=== PATIENT | male | born 1965 | race Caucasian/White ===

== ENCOUNTER 2020-07-06 18:37 | Emergency (ER) | payer OTHER, SELFPAY ==
--- NOTE | ~2020-07-06 | XR_ITS ---
EXAMINATION: XR hip LT min 2V DATE: 07/06/2020 19:18 INDICATION: Left hip pain. TECHNIQUE: 3 views of left hip were obtained. COMPARISON: None. FINDINGS: Bone alignment is normal. There is severe left hip osteoarthritis. There is a nondisplaced subchondral fracture of left femoral head. IMPRESSION: 1. Severe left hip osteoarthritis with subchondral fracture of left femoral head. Reviewed, dictated and finalized at location A. TRIPOLER IMPRESSION: 1. Severe left hip osteoarthritis with subchondral fracture of left femoral hea juwan
[2020-07-06 18:49] VITALS: BP 185/73; PULSE 97; RESP 16; TEMP 36.7; O2SAT 99
--- NOTE | 2020-07-06 18:58 | ED.GENADULT ---
HPI - General Adult General Chief complaint: Extremity Injury, Lower Stated complaint: groin area pain Time Seen by Provider: 07/06/20 18:58 Source: patient and RN notes reviewed Mode of arrival: ambulatory Limitations: no limitations History of Present Illness HPI narrative: 55-year-old male presents with concern for left hip pain. Reports he has been seeing a chiropractor for left hip pain, the chiropractor told him he would need a hip replacement. He has not seen an orthopedic doctor for this problem. 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 Reports today his was helping him put on his sock when he felt a pop, and subsequent pain. Reports he has been using a cane since then, has taken 2 ibuprofen. He denies any numbness, weakness. Reports decreased range of motion MD complaint: Hip pain Related Data Allergies Allergy/AdvReac Type Severity Reaction Status Date / Time No Known Allergies Allergy Verified 07/06/20 19:04 Review of Systems Review of Systems: Narrative: CONSTITUTIONAL: Denies malaise, chills, sweats, or fever. CARDIOVASCULAR: Denies chest pain, palpitations, or edema. RESPIRATORY: Denies cough or dyspnea. SKIN: Denies redness, bruising MUSCULOSKELETAL: Reports right hip pain, decreased range of motion NEUROLOGIC: Denies numbness, weakness All systems reviewed & are unremarkable except as noted in HPI and below PMFSH Comments At time of signature, agree with nursing past medical, surgical, social and family history. There is no relevant family history pertinent to the presenting complaint Exam Narrative: Exam Narrative: GENERAL: Well-appearing, well-nourished, and in no acute distress. HEAD: Normocephalic EYES: PERRLA, conjunctivae clear ENT: Mucous membranes moist. NECK: Supple. CHEST: No respiratory distress. Speaks in full sentences. HEART: Regular rate and rhythm. Normal peripheral pulses. EXTREMITIES: Right hip has decreased normal range of motion, no edema, normal strength and sensation. SKIN: Warm, dry, no rash. NEURO: Alert and oriented x3. PSYCH: Normal mood and affect Course Course Emergency Course: Patient is aware of diagnosis, understands and agrees to treatment plan. Anticipatory guidance given. Patient agrees to follow-up as directed and is aware of reasons to seek care at the emergency department. Portions of this record may have been created with voice recognition software Vital Signs Vital signs: Vital Signs Temperature 98.1 F 07/06/20 18:49 Pulse Rate 97 07/06/20 18:49 Respiratory Rate 16 07/06/20 18:49 Blood Pressure 185/73 H 07/06/20 18:49 Pulse Oximetry 99 07/06/20 18:49 Temperature 98.1 F 07/06/20 19:04 Pulse Rate 97 07/06/20 19:04 Respiratory Rate 16 07/06/20 19:04 Blood Pressure 185/73 H 07/06/20 19:04 Pulse Oximetry 99 07/06/20 19:04 Reviewed. Medical Decision Making MDM Narrative Medical decision making narrative: Patients injury and pain is consistent with musculoskeletal etiology. No signs of neurological or vascular compromise on exam. Compartments and tissues are soft without signs of compartment syndrome. Pain is felt appropriate for further evaluation on an outpatient basis. Vital Signs Vital Signs: Vital Signs Temperature 98.1 F 07/06/20 18:49 Pulse Rate 97 07/06/20 18:49 Respiratory Rate 16 07/06/20 18:49 Blood Pressure 185/73 H 07/06/20 18:49 Pulse Oximetry 99 07/06/20 18:49 Temperature 98.1 F 07/06/20 19:04 Pulse Rate 97 07/06/20 19:04 Respiratory Rate 16 07/06/20 19:04 Blood Pressure 185/73 H 07/06/20 19:04 Pulse Oximetry 99 07/06/20 19:04 Critical Care Time Critical Care Time Critical Care Time: No Discharge Plan Discharge Clinical Impression: Fracture of femoral head Qualifiers: Encounter type: initial encounter Fracture type: closed Laterality: left Qualified Code(s): S72.052A - Unspecified fracture of head of left femur, initial encounte
[2020-07-06 19:04] VITALS: BP 185/73; PULSE 97; RESP 16; TEMP 36.7; O2SAT 99
--- NOTE | 2020-07-06 19:47 | PC.NURSE ---
PT DECLINED WHEELCHAIR TO RADIOLOGY. PT USED PERSONAL CANE
== END 2020-07-06 19:52 | disposition home or self-care (01) ==
PROVIDERS: Emergency Provider Nurse Practitioner; PCP Family Medicine
DX: S72.052A Unspecified fracture of head of left femur, initial encounter for closed fracture (principal); X50.9XXA Other and unspecified overexertion or strenuous movements or postures, initial encounter
CPT/HCPCS: 73502; 99214; G0463